=== PATIENT | female | born 1980 | race Caucasian/White ===

== ENCOUNTER → 2016-12-21 | Outpatient (CLI) | payer OTHER | END | disposition disaster alternative care site (69) | LOC: GRAD 09:51 | DX: R07.2 Precordial pain (principal) | CPT/HCPCS: A9503 ==

== ENCOUNTER → 2017-01-03 | Outpatient (CLI) | payer OTHER | END | disposition disaster alternative care site (69) | LOC: GRAD 07:30 | DX: R07.81 Pleurodynia (principal); R07.2 Precordial pain ==

== ENCOUNTER → 2017-03-28 | Outpatient (CLI) | payer OTHER ==
[2017-03-28 10:26] LABS: HEMATOCRIT 38.5 % (33.0-46.0); MCH 30.2 pg (27.0-34.0); MCHC 33.8 gm/dL (32.0-36.5); MCV 89.5 fl (83.0-98.0); MPV 9.3 fl (9.4-12.4); PLATELET COUNT 247 K/uL (150-450); RDW-CV 11.9 % (11.9-14.6); WBC 6.3 K/uL (4.0-11.0)
[2017-03-28 10:40] LABS: ANION GAP 9.1 (10.0-19.0); CALCIUM 8.4 mg/dL (8.5-10.5); CREATININE 0.9 mg/dL (0.5-1.1); POTASSIUM 4.1 mMol/L (3.7-5.1)
[2017-03-28 11:19] LABS: ABSOLUTE NEUTROPHIL CT (ANC) 3.7 K/uL (1.8-7.8); BANDED NEUTROPHIL # 0.2 K/uL (0.0-0.1); BANDED NEUTROPHILS % 3 %; LYMPHOCYTE # 1.9 K/uL (0.8-4.0); LYMPHOCYTE % 30 %; MONOCYTE # 0.5 K/uL (0.0-1.0); SEGMENTED NEUTROPHIL # 3.5 K/uL (1.8-7.8); SEGMENTED NEUTROPHIL % 56 %
== END | disposition disaster alternative care site (69) ==
LOC: GLAB 03-08 07:13
PROVIDERS: Thoracic Surgery (Cardiothoracic Vascular Surgery)
DX: Z01.812 Encounter for preprocedural laboratory examination (principal); R07.82 Intercostal pain